=== PATIENT | female | born 1950 | race Caucasian/White ===

== ENCOUNTER 2018-01-02 13:16 | Outpatient (CLI) | payer MEDICARE, OTHER | END 2018-01-02 13:17 | disposition home or self-care (01) | LOC: BICMAMMO 13:16 | PROVIDERS: ATTEND Nurse Practitioner Family | DX: Z12.31 Encounter for screening mammogram for malignant neoplasm of breast (principal) | CPT/HCPCS: 77063; 77067 ==

== ENCOUNTER 2018-01-14 19:30 | Outpatient (CLI) | payer MEDICARE | END 2018-01-14 19:31 | disposition home or self-care (01) | LOC: SLEEPLAB 19:30 | PROVIDERS: ATTEND Nurse Practitioner Family | DX: G47.33 Obstructive sleep apnea (adult) (pediatric) (principal); E66.9 Obesity, unspecified; K21.9 Gastro-esophageal reflux disease without esophagitis; F32.9 Major depressive disorder, single episode, unspecified; I10 Essential (primary) hypertension; R53.83 Other fatigue; R06.83 Snoring | CPT/HCPCS: 95810 ==

== ENCOUNTER 2018-01-19 20:30 | Outpatient (CLI) | payer MEDICARE | END 2018-01-19 20:31 | disposition home or self-care (01) | LOC: SLEEPLAB 20:30 | PROVIDERS: ATTEND Nurse Practitioner Family | DX: G47.33 Obstructive sleep apnea (adult) (pediatric) (principal); G47.61 Periodic limb movement disorder; F32.9 Major depressive disorder, single episode, unspecified; I10 Essential (primary) hypertension; E66.9 Obesity, unspecified; K21.9 Gastro-esophageal reflux disease without esophagitis; R06.83 Snoring | CPT/HCPCS: 95811 ==

== ENCOUNTER 2018-01-22 10:03 | Outpatient (CLI) | payer MEDICARE | END 2018-01-22 10:04 | disposition home or self-care (01) | LOC: BICMAMMO 10:03 | PROVIDERS: ATTEND Nurse Practitioner Family | DX: Z13.820 Encounter for screening for osteoporosis (principal) | CPT/HCPCS: 77080 ==

== ENCOUNTER 2019-03-04 13:04 | Outpatient (CLI) | payer MEDICARE, OTHER ==
--- NOTE | 2019-03-04 13:50 | MMO ---
Bilateral MAMMO Bilat Screen [facility]. CLINICAL HISTORY: Patient is 69 years old and is seen for screening. The patient has no family history of breast cancer. The patient has no personal history of cancer. VIEWS: The views performed were: bilateral craniocaudal with tomosynthesis and bilateral mediolateral oblique with tomosynthesis. FILMS COMPARED: The present examination has been compared to prior imaging studies performed at [facility] on 06/03/2014 and 01/02/2018. MAMMOGRAM FINDINGS: The breasts are almost entirely fat. There are stable benign appearing calcifications seen in both breasts. There are no suspicious masses, suspicious calcifications, or new areas of architectural distortion. IMPRESSION: THERE IS NO MAMMOGRAPHIC EVIDENCE OF MALIGNANCY. A ROUTINE FOLLOW-UP MAMMOGRAM IN 1 YEAR IS RECOMMENDED. THE RESULTS OF THIS EXAM WERE SENT TO THE PATIENT. ACR BI-RADS Category 2 - Benign finding MAMMOGRAPHY NOTE: 1. A negative mammogram report should not delay a biopsy if a dominant of clinically suspicious mass is present. 2. Approximately 10% to 15% of breast cancers are not detected by mammography. 3. Adenosis and dense breasts may obscure an underlying neoplasm. Reported by: NEERU LOWERY MD Electonically Signed: [id number]
== END 2019-03-04 13:05 | disposition home or self-care (01) ==
LOC: BICMAMMO 13:04
PROVIDERS: ATTEND Nurse Practitioner Family
DX: Z12.31 Encounter for screening mammogram for malignant neoplasm of breast (principal)
CPT/HCPCS: 77063; 77067

== ENCOUNTER 2019-08-02 13:52 | Outpatient (CLI) | payer MEDICARE, OTHER ==
--- NOTE | 2019-08-02 14:06 | RAD ---
XR Hip Lt 2-3 View INDICATION: Left hip hematoma COMPARISON: None FINDINGS: Bones: No acute osseous abnormality. Bone mineralization appears within normal limits. Hip joint: Radiographically normal. SI joints and symphysis pubis: Radiographically normal. Intrapelvic contents: Visualized bowel gas pattern is within normal limits. Surrounding soft tissues: Radiographically normal. IMPRESSION: 1. No acute osseous abnormality.
--- NOTE | 2019-08-02 14:07 | RAD ---
XR Femur Lt 2 View STANDARD INDICATION: Hematoma COMPARISON: Left hip radiograph dated August 02, 2019. FINDINGS: Bones: No acute fracture or subluxation is demonstrated. Soft tissues: Within normal limits. Joints: There is mild osteoarthrosis of the left knee. IMPRESSION: No acute osseous abnormality.
== END 2019-08-02 13:53 | disposition home or self-care (01) ==
LOC: RAD-FRANK 13:52
PROVIDERS: ATTEND Nurse Practitioner Family
DX: S80.12XA Contusion of left lower leg, initial encounter (principal)

== ENCOUNTER 2020-03-09 08:36 | Outpatient (CLI) | payer MEDICARE, OTHER ==
--- NOTE | 2020-03-09 09:33 | BD ---
EXAM: Bone densitometry using DEXA HISTORY: 70 yo female. Screening for postmenopausal osteoporosis FINDINGS: L1--bone mineral density 1.587 g/sq cm; T score 5.4 ; Z score 7.2 L2--bone mineral density 1.492 g/sq cm; T score 4.2 ; Z score 6.2 L3--bone mineral density 1.371 g/sq cm; T score 2.6 ; Z score 4.7 L4--bone mineral density 1.360 g/sq cm; T score 2.7 ; Z score 4.8 Total L1-L4--bone mineral density 1.445 g/sq cm; T score 3.6 ; Z score 5.6 Left femoral neck--bone mineral density0.829; T score -0.2 ; Z score 1.5 Total proximal left femur--bone mineral density 1.045; T score 0.8 ; Z score 2.2 IMPRESSION: Normal BMD
--- NOTE | 2020-03-09 11:32 | MMO ---
Bilateral MAMMO Bilat Screen [facility]. CLINICAL HISTORY: Patient is 70 years old and is seen for screening. The patient has no family history of breast cancer. The patient has no personal history of cancer. VIEWS: The views performed were: bilateral craniocaudal with tomosynthesis and bilateral mediolateral oblique with tomosynthesis. FILMS COMPARED: The present examination has been compared to prior imaging studies performed at [facility] on 06/03/2014, 01/02/2018 and 03/04/2019. This study has been interpreted with the assistance of computer-aided detection. MAMMOGRAM FINDINGS: The breasts are almost entirely fat. Benign calcifications are noted bilaterally. There are no suspicious masses, suspicious calcifications, or new areas of architectural distortion. IMPRESSION: THERE IS NO MAMMOGRAPHIC EVIDENCE OF MALIGNANCY. A ROUTINE FOLLOW-UP MAMMOGRAM IN 1 YEAR IS RECOMMENDED. THE RESULTS OF THIS EXAM WERE SENT TO THE PATIENT. ACR BI-RADS Category 2 - Benign finding MAMMOGRAPHY NOTE: 1. A negative mammogram report should not delay a biopsy if a dominant of clinically suspicious mass is present. 2. Approximately 10% to 15% of breast cancers are not detected by mammography. 3. Adenosis and dense breasts may obscure an underlying neoplasm. Reported by: AISSATOU ARNOLD MD Electonically Signed: [id number]
== END 2020-03-09 08:37 | disposition home or self-care (01) ==
LOC: BICMAMMO 08:36
PROVIDERS: ATTEND Nurse Practitioner Family
DX: Z12.31 Encounter for screening mammogram for malignant neoplasm of breast (principal); Z13.820 Encounter for screening for osteoporosis
CPT/HCPCS: 77063; 77067; 77080

== ENCOUNTER 2020-10-24 14:39 | Outpatient (CLI) | payer MEDICARE, OTHER | END 2020-10-24 14:40 | disposition home or self-care (01) | LOC: BICMRI 14:39 | PROVIDERS: ATTEND Orthopaedic Surgery | DX: M75.101 Unspecified rotator cuff tear or rupture of right shoulder, not specified as traumatic (principal); M25.411 Effusion, right shoulder; M19.011 Primary osteoarthritis, right shoulder; M25.811 Other specified joint disorders, right shoulder ==

== ENCOUNTER 2020-11-30 10:55 | Outpatient (CLI) | payer MEDICARE, OTHER ==
[2020-11-30 12:31] LABS: #Eosinphils 0.2 10x3/uL (0.0-0.5); #Monocytes 0.8 10x3/uL (0.0-1.1); #Neutrophils 3.5 10x3/uL (1.5-8.4); %Basophils 0.6 % (0.0-2.0); %Eosinophils 3.4 % (0.0-6.0); %Lymphocytes 26.1 % (18.0-47.0); %Neutrophils 56.6 % (40.0-75.0); Hemoglobin 12.7 g/dL (12.0-15.5); Mean Corpuscular HGB CONC 32.1 g/dL (32.0-36.0); Mean Corpuscular Hemoglobin 30.5 pg (27.0-33.0); Mean Corpuscular Volume 95.2 fl (81.6-98.3); Mean Platelet Volume 8.6 fl (7.4-10.4); Platelet Count 345 10x3/uL (150-450); RBC Distribution Width 14.3 % (11.5-14.5); Red Blood Cell (RBC) Count 4.16 10x6/uL (3.90-5.03); White Blood Cell (WBC) Count 6.2 10x3/uL (3.5-10.5)
[2020-11-30 12:52] LABS: Anion Gap 17 mmol/L (10-20); BUN (Urea Nitrogen) 11 mg/dL (9.8-20.1); Calc. Creatinine Clearance 0 mL/min (70-130); Calcium 9.3 mg/dL (7.8-10.44); Carbon Dioxide 26 mmol/L (23-31); Chloride 94 mmol/L (98-107); Glucose 105 mg/dL (80-115); Potassium 3.8 mmol/L (3.5-5.1); Sodium 133 mmol/L (136-145)
[2020-11-30 17:53] LABS: SARS-CoV-2 PCR by NAA Not Detected (NotDetected)
== END 2020-11-30 10:56 | disposition home or self-care (01) ==
LOC: LABBT 10:55
PROVIDERS: ATTEND Orthopaedic Surgery
DX: Z01.818 Encounter for other preprocedural examination (principal); Z20.822 Contact with and (suspected) exposure to COVID-19; M75.101 Unspecified rotator cuff tear or rupture of right shoulder, not specified as traumatic; M75.21 Bicipital tendinitis, right shoulder
CPT/HCPCS: 80048; 85025; 87081; 93005; U0003; U0005; 87635; 93010

== ENCOUNTER 2020-11-30 11:00 | Inpatient (IN) | payer MEDICARE, OTHER ==
[2020-12-01 15:47] VITALS: BMI 33.8
[2020-12-05] MEDS ORDERED: Sodium Chloride 0.9% 100 ML ONE (06:34)
[2020-12-05] MEDS ORDERED: Tranexamic Acid 1,000 MG/10 ML VIAL ONE (06:34)
[2020-12-05] MEDS ORDERED: Midazolam HCl 2 mg/2 ml Vial ONE (06:35)
[2020-12-05] MEDS ORDERED: Fentanyl 100 MCG/2 ML VIAL ONE ×2 (06:35→07:13)
[2020-12-05] MEDS ORDERED: Lidocaine 1% (PF) 30 ML VIAL ONE (06:35)
[2020-12-05] MEDS ORDERED: Vancomycin 1.5 GRAM/300 ML BAG 1.5 GM in Premix Bag 1 BAG IVPB SCH (06:45)
[2020-12-05] MEDS ORDERED: HYDROcodone/Acetaminophen 7.5/325 mg Tablet PO PRN ×2 (07:07)
[2020-12-05] MEDS ORDERED: traMADol HCl 50 MG TAB PO PRN ×5 (07:07→07:45)
[2020-12-05] MEDS ORDERED: Non-Formulary Item 1 EACH (Loratadine [Claritin] 10 MG Capsule) PO PRN (07:10)
[2020-12-05] MEDS ORDERED: Rocuronium Bromide 10 MG/ML (10ML VIAL) ONE (07:23)
[2020-12-05] MEDS ORDERED: ePHEDrine Sulfate 50 MG/10 ML VIAL ONE (07:23)
[2020-12-05] MEDS ORDERED: Ketorolac Tromethamine 30 MG/ML VIAL ONE (07:23)
[2020-12-05] MEDS ORDERED: PROPOFOL 200 MG/20 ML VIAL ONE (07:23)
[2020-12-05] MEDS ORDERED: Dexamethasone 20 MG/5 ML VIAL ONE (07:23)
[2020-12-05] MEDS ORDERED: Ropivacaine 0.5% HCl/PF (150 MG/30 ML VIAL) ONE (07:23)
[2020-12-05] MEDS ORDERED: Ondansetron PF 4 MG/2 ML Vial ONE (07:23)
[2020-12-05] MEDS ORDERED: Glycopyrrolate 0.2 MG/ML 5 ML SYRINGE ONE (07:23)
[2020-12-05] MEDS ORDERED: PHENYLEPHRINE-NS 100 MCG/ML 10 ML SYRINGE ONE (07:23)
[2020-12-05] MEDS ORDERED: Ropivacaine 2% HCl/PF (20 MG/10 ML VIAL) ONE (07:23)
[2020-12-05] MEDS ORDERED: Lidocaine 1% PF 5 ML VIAL ONE (07:23)
[2020-12-05] MEDS ORDERED: Loratadine 10 MG TAB PO PRN (07:32)
[2020-12-05] MEDS ORDERED: Fentanyl 100 MCG/2 ML VIAL IV PRN (07:43)
[2020-12-05] MEDS ORDERED: Ropivacaine 0.2% 550 ML 550 ML NERVE BLCK SCH (07:45)
[2020-12-05] MEDS ORDERED: Ketorolac Tromethamine 30 MG/ML VIAL IVP PRN (07:45)
[2020-12-05] MEDS ORDERED: Ondansetron PF 4 MG/2 ML Vial IVP PRN (07:45)
[2020-12-05] MEDS ORDERED: Promethazine HCl 25 MG/ML VIAL IM PRN ×2 (07:45→08:17)
[2020-12-05] MEDS ORDERED: HYDROcodone/Acetaminophen 10/325 mg Tablet PO PRN (07:45)
[2020-12-05] MEDS ORDERED: Meperidine HCl/PF 25 MG/ML VIAL SLOW IVP PRN (08:17)
[2020-12-05] MEDS ORDERED: PACU-Morphine 4MG/ML VIAL SLOW IVP PRN (08:17)
[2020-12-05] MEDS ORDERED: Promethazine HCl 25 MG/ML VIAL SLOW IVP PRN (08:17)
[2020-12-05] MEDS ORDERED: Non-Formulary Item 1 EACH (Magnesium Oxide [Magnesium] 400 MG Capsule) PO SCH (09:00)
[2020-12-05] MEDS ORDERED: Carvedilol 3.125 MG TAB PO SCH (09:00)
[2020-12-05] MEDS ORDERED: Non-Formulary Item 1 EACH (Omeprazole Magnesium [Omeprazole Magnesium] 20 MG Capsule.Dr) PO SCH (09:00)
[2020-12-05] MEDS ORDERED: Non-Formulary Item 1 EACH (Latanoprost/Pf [Latanoprost 0.005% Eye Drop] 7.5 ML Drops) EA EYE SCH (09:00)
[2020-12-05] MEDS ORDERED: Non-Formulary Item 1 EACH (Cholecalciferol (Vitamin D3) [Vitamin D3] 25 MCG Capsule) PO SCH (09:00)
[2020-12-05] MEDS ORDERED: [UNRECOGNIZED DRUG - OTHER] PO SCH (09:00)
[2020-12-05] MEDS ORDERED: CEFAZOLIN 2 GM in Premix Bag 1 BAG IVPB SCH (14:00)
[2020-12-05] MEDS: Calcium Carbonate 600 MG + Vit D TAB PO SCH (14:24)
[2020-12-05] MEDS: Carvedilol 3.125 MG TAB PO SCH ×2 (14:25→21:06)
[2020-12-05] MEDS: Gabapentin 300 MG CAP PO SCH ×2 (14:25→21:07)
[2020-12-05] MEDS: Latanoprost 0.005% Ophth Soln 2.5 ml Bottle EA EYE SCH (14:25)
[2020-12-05] MEDS: Fish Oil 1,000 MG CAP PO SCH (14:25)
[2020-12-05] MEDS: Cholecalciferol 1,000 UNITS (25 MCG) TAB PO SCH (14:25)
[2020-12-05] MEDS: Lactinex Tablet PO SCH (14:25)
[2020-12-05] MEDS: Lisinopril/Hydrochlorothiazide 20/25 mg Tablet PO SCH ×2 (14:25→21:06)
[2020-12-05] MEDS: sulfaSALAzine 500 MG TAB PO SCH ×2 (14:26→21:05)
[2020-12-05] MEDS: Magnesium Oxide 400 MG TAB PO SCH (14:26)
[2020-12-05] MEDS: CEFAZOLIN 2 GM in Premix Bag 1 BAG IVPB SCH ×2 (15:33→23:06)
[2020-12-05] MEDS: Sodium Chloride 0.9% 1,000 ML IV SCH ×2 (15:54→23:06)
[2020-12-05] MEDS: HYDROcodone/Acetaminophen 10/325 mg Tablet PO PRN ×2 (19:13→23:05)
[2020-12-05] MEDS ORDERED: Pravastatin Sodium 20 MG TAB PO SCH (21:00)
[2020-12-05] MEDS: DULoxetine 60 MG CAP PO SCH (21:06)
[2020-12-05] MEDS: Simvastatin 10 MG TAB PO SCH (21:06)
[2020-12-05] MEDS: Zolpidem Tartrate 5 MG TAB PO PRN (21:07)
[2020-12-06] MEDS: Sodium Chloride 0.9% 1,000 ML IV SCH ×2 (04:29→13:05)
[2020-12-06] MEDS: HYDROcodone/Acetaminophen 10/325 mg Tablet PO PRN ×2 (05:20→17:14)
[2020-12-06] MEDS: Magnesium Oxide 400 MG TAB PO SCH (09:33)
[2020-12-06] MEDS: Lactinex Tablet PO SCH (09:34)
[2020-12-06] MEDS: Calcium Carbonate 600 MG + Vit D TAB PO SCH (09:34)
[2020-12-06] MEDS: Fish Oil 1,000 MG CAP PO SCH (09:34)
[2020-12-06] MEDS: Gabapentin 300 MG CAP PO SCH ×2 (09:35→20:15)
[2020-12-06] MEDS: Cholecalciferol 1,000 UNITS (25 MCG) TAB PO SCH (09:36)
[2020-12-06] MEDS: Carvedilol 3.125 MG TAB PO SCH ×2 (09:36→20:15)
[2020-12-06] MEDS: Lisinopril/Hydrochlorothiazide 20/25 mg Tablet PO SCH ×2 (09:36→20:17)
[2020-12-06] MEDS: sulfaSALAzine 500 MG TAB PO SCH ×2 (09:41→20:18)
[2020-12-06] MEDS: Latanoprost 0.005% Ophth Soln 2.5 ml Bottle EA EYE SCH (09:44)
[2020-12-06] MEDS ORDERED: Ropivacaine 0.5% HCl/PF (150 MG/30 ML VIAL) ONE (12:50)
[2020-12-06] MEDS: DULoxetine 60 MG CAP PO SCH (20:17)
[2020-12-06] MEDS: Simvastatin 10 MG TAB PO SCH (20:18)
[2020-12-06] MEDS: Zolpidem Tartrate 5 MG TAB PO PRN (21:34)
[2020-12-07] MEDS: HYDROcodone/Acetaminophen 10/325 mg Tablet PO PRN ×3 (05:52→21:15)
[2020-12-07] MEDS: Sodium Chloride 0.9% 1,000 ML IV SCH (07:17)
[2020-12-07] MEDS: Latanoprost 0.005% Ophth Soln 2.5 ml Bottle EA EYE SCH (08:57)
[2020-12-07] MEDS: Lactinex Tablet PO SCH (08:58)
[2020-12-07] MEDS: Calcium Carbonate 600 MG + Vit D TAB PO SCH (08:58)
[2020-12-07] MEDS: Lisinopril/Hydrochlorothiazide 20/25 mg Tablet PO SCH ×2 (08:58→21:10)
[2020-12-07] MEDS: sulfaSALAzine 500 MG TAB PO SCH ×2 (08:58→21:10)
[2020-12-07] MEDS: Magnesium Oxide 400 MG TAB PO SCH (08:58)
[2020-12-07] MEDS: Fish Oil 1,000 MG CAP PO SCH (08:58)
[2020-12-07] MEDS: Gabapentin 300 MG CAP PO SCH ×2 (08:58→21:10)
[2020-12-07] MEDS: Carvedilol 3.125 MG TAB PO SCH ×2 (08:59→21:10)
[2020-12-07] MEDS: Cholecalciferol 1,000 UNITS (25 MCG) TAB PO SCH (08:59)
[2020-12-07 14:28] LABS: Hemoglobin 11.1 g/dL (12.0-16.0); Mean Corpuscular HGB CONC 32.2 g/dL (32.0-36.0); Mean Corpuscular Hemoglobin 30.8 pg (27.0-31.0); Mean Corpuscular Volume 95.8 fL (78.0-98.0); Mean Platelet Volume 6.2 fL (7.4-10.4); Platelet Count 332 thou/uL (130-400); RBC Distribution Width 13.3 % (11.5-14.5); Red Blood Cell (RBC) Count 3.61 mill/uL (4.20-5.40); White Blood Cell (WBC) Count 8.6 thou/uL (4.8-10.8)
[2020-12-07 14:44] LABS: Lactic Acid 1.1 mmol/L (0.5-2.2)
[2020-12-07 14:46] LABS: Anion Gap 13 mmol/L (10-20); BUN (Urea Nitrogen) 9 mg/dL (9.8-20.1); Calc. Creatinine Clearance 121 mL/min (70-130); Calcium 9.8 mg/dL (7.8-10.44); Carbon Dioxide 34 mmol/L (23-31); Chloride 86 mmol/L (98-107); Glucose 104 mg/dL (80-115); Sodium 130 mmol/L (136-145)
[2020-12-07 14:53] LABS: Band 24 % (5-11); Eosinophils 1 % (0-10); Lymphocytes 10 % (21-51); MDiff Complete? YES; Monocytes 12 % (0-10); Neutrophil 49 % (42-75); Platelet Morphology Comment Appears Adequate; Polychromasia SLIGHT = 2-3 cells (100X) (0-2/hpf); Reactive Lymphocytes 3 % (0-10)
[2020-12-07 14:57] LABS: Potassium 2.9 mmol/L (3.5-5.1)
[2020-12-07] MEDS ORDERED: Potassium Chloride 20 MEQ TAB PO SCH ×2 (15:00→18:00)
[2020-12-07] MEDS: DULoxetine 60 MG CAP PO SCH (21:09)
[2020-12-07] MEDS: Simvastatin 10 MG TAB PO SCH (21:10)
[2020-12-07] MEDS: Zolpidem Tartrate 5 MG TAB PO PRN (21:16)
[2020-12-08 08:16] LABS: #Eosinphils 0.2 thou/uL (0.0-0.7); #Lymphocytes 1.3 thou/uL (1.20-3.40); #Monocytes 1.1 thou/uL (0.11-0.59); #Neutrophils 5.7 thou/uL (1.40-6.50); %Basophils 0.2 % (0.0-1.0); %Eosinophils 2.3 % (0.0-10.0); %Lymphocytes 15.2 % (21.0-51.0); %Monocytes 13.7 % (0.0-10.0); %Neutrophils 68.6 % (42.0-75.0); Hemoglobin 10.7 g/dL (12.0-16.0); Mean Corpuscular HGB CONC 31.6 g/dL (32.0-36.0); Mean Corpuscular Hemoglobin 30.3 pg (27.0-31.0); Mean Corpuscular Volume 95.8 fL (78.0-98.0); Mean Platelet Volume 6.1 fL (7.4-10.4); Platelet Count 313 thou/uL (130-400); RBC Distribution Width 13.4 % (11.5-14.5); Red Blood Cell (RBC) Count 3.53 mill/uL (4.20-5.40); White Blood Cell (WBC) Count 8.3 thou/uL (4.8-10.8)
[2020-12-08 08:32] LABS: Anion Gap 13 mmol/L (10-20); BUN (Urea Nitrogen) 10 mg/dL (9.8-20.1); Calc. Creatinine Clearance 127 mL/min (70-130); Calcium 9.1 mg/dL (7.8-10.44); Carbon Dioxide 33 mmol/L (23-31); Chloride 92 mmol/L (98-107); Glucose 97 mg/dL (80-115); Potassium 3.6 mmol/L (3.5-5.1); Sodium 134 mmol/L (136-145)
[2020-12-08] MEDS: Lisinopril/Hydrochlorothiazide 20/25 mg Tablet PO SCH ×2 (08:45→21:31)
[2020-12-08] MEDS: Gabapentin 300 MG CAP PO SCH ×2 (08:45→21:31)
[2020-12-08] MEDS: Lactinex Tablet PO SCH (08:45)
[2020-12-08] MEDS: Carvedilol 3.125 MG TAB PO SCH ×2 (08:45→21:31)
[2020-12-08] MEDS: Cholecalciferol 1,000 UNITS (25 MCG) TAB PO SCH (08:45)
[2020-12-08] MEDS: Fish Oil 1,000 MG CAP PO SCH (08:45)
[2020-12-08] MEDS: Calcium Carbonate 600 MG + Vit D TAB PO SCH (08:45)
[2020-12-08] MEDS: Magnesium Oxide 400 MG TAB PO SCH (08:45)
[2020-12-08] MEDS: sulfaSALAzine 500 MG TAB PO SCH ×2 (08:46→21:30)
[2020-12-08] MEDS: HYDROcodone/Acetaminophen 10/325 mg Tablet PO PRN ×4 (08:46→21:29)
[2020-12-08] MEDS: Latanoprost 0.005% Ophth Soln 2.5 ml Bottle EA EYE SCH (08:51)
[2020-12-08] MEDS: Simvastatin 10 MG TAB PO SCH (21:31)
[2020-12-08] MEDS: DULoxetine 60 MG CAP PO SCH (21:31)
[2020-12-09] MEDS: HYDROcodone/Acetaminophen 10/325 mg Tablet PO PRN ×2 (02:12→08:58)
[2020-12-09] MEDS: sulfaSALAzine 500 MG TAB PO SCH (08:59)
[2020-12-09] MEDS: Cholecalciferol 1,000 UNITS (25 MCG) TAB PO SCH (08:59)
[2020-12-09] MEDS: Magnesium Oxide 400 MG TAB PO SCH (08:59)
[2020-12-09] MEDS: Fish Oil 1,000 MG CAP PO SCH (08:59)
[2020-12-09] MEDS: Latanoprost 0.005% Ophth Soln 2.5 ml Bottle EA EYE SCH (08:59)
[2020-12-09] MEDS: Gabapentin 300 MG CAP PO SCH (08:59)
[2020-12-09] MEDS: Lactinex Tablet PO SCH (08:59)
[2020-12-09] MEDS: Calcium Carbonate 600 MG + Vit D TAB PO SCH (08:59)
[2020-12-09] MEDS: Carvedilol 3.125 MG TAB PO SCH (09:44)
[2020-12-09] MEDS: Lisinopril/Hydrochlorothiazide 20/25 mg Tablet PO SCH (09:44)
[2020-12-09 12:26] VITALS: BP 107/68; TEMP 98.2
== END 2020-12-09 13:31 | disposition home or self-care (01) | DRG 483 ==
LOC: SURG A 12-05 05:27 → EDSTATUS 12-05 11:00 → SURG B 12-05 14:32
PROVIDERS: ADMIT Orthopaedic Surgery; ATTEND Internal Medicine
PROC: 0RRJ00Z Replacement of Right Shoulder Joint with Reverse Ball and Socket Synthetic Substitute, Open Approach (ICD-10-PCS; principal; 2020-12-05)
PROC: 0LS30ZZ Reposition Right Upper Arm Tendon, Open Approach (ICD-10-PCS; 2020-12-05)
DX: M06.9 Rheumatoid arthritis, unspecified (principal); J96.01 Acute respiratory failure with hypoxia; E87.1 Hypo-osmolality and hyponatremia; M75.21 Bicipital tendinitis, right shoulder; M75.101 Unspecified rotator cuff tear or rupture of right shoulder, not specified as traumatic; I10 Essential (primary) hypertension; E78.5 Hyperlipidemia, unspecified; K21.9 Gastro-esophageal reflux disease without esophagitis; G47.33 Obstructive sleep apnea (adult) (pediatric); G43.909 Migraine, unspecified, not intractable, without status migrainosus; E87.6 Hypokalemia; Z90.49 Acquired absence of other specified parts of digestive tract; Z90.89 Acquired absence of other organs; Z87.891 Personal history of nicotine dependence; Z79.899 Other long term (current) drug therapy
CPT/HCPCS: 36415; 71045; 80048; 83605; 83880; 84484; 85025; 93005; 93010; A4306; C1713; J0690; J1100; J1885; J2001; J2250; J2405; J2704; J2795; J3010; J3490

== ENCOUNTER 2021-07-10 11:14 | Outpatient (CLI) | payer MEDICARE | END 2021-07-10 11:15 | disposition home or self-care (01) | LOC: BICRAD 11:14 | PROVIDERS: ATTEND Nurse Practitioner Family | DX: M25.511 Pain in right shoulder (principal) ==

== ENCOUNTER 2021-10-04 09:10 | Outpatient (CLI) | payer MEDICARE | END 2021-10-04 09:11 | disposition home or self-care (01) | LOC: MRI 09:10 | PROVIDERS: ATTEND Nurse Practitioner Family | DX: M47.26 Other spondylosis with radiculopathy, lumbar region (principal) | CPT/HCPCS: 72148 ==

== ENCOUNTER 2021-12-27 09:06 | Outpatient (CLI) | payer MEDICARE | END 2021-12-27 09:07 | disposition home or self-care (01) | LOC: BICMAMMO 09:06 | PROVIDERS: ATTEND Nurse Practitioner Family | DX: Z12.31 Encounter for screening mammogram for malignant neoplasm of breast (principal); Z13.820 Encounter for screening for osteoporosis; M05.79 Rheumatoid arthritis with rheumatoid factor of multiple sites without organ or systems involvement; E55.9 Vitamin D deficiency, unspecified | CPT/HCPCS: 77063; 77067; 77080 ==

== ENCOUNTER 2022-08-08 07:24 | Emergency (ER) | payer MEDICARE, OTHER | END 2022-08-08 08:56 | disposition home or self-care (01) | LOC: ERS 07:24 | DX: S93.402A Sprain of unspecified ligament of left ankle, initial encounter (principal); E78.5 Hyperlipidemia, unspecified; I10 Essential (primary) hypertension; G43.909 Migraine, unspecified, not intractable, without status migrainosus; X50.1XXA Overexertion from prolonged static or awkward postures, initial encounter ==

== ENCOUNTER 2023-08-20 14:09 | Outpatient (CLI) | payer MEDICARE | END 2023-08-20 14:10 | disposition home or self-care (01) | LOC: BICMAMMO 14:09 | PROVIDERS: ATTEND Nurse Practitioner Family | DX: Z12.31 Encounter for screening mammogram for malignant neoplasm of breast (principal); N63.20 Unspecified lump in the left breast, unspecified quadrant | CPT/HCPCS: 77063; 77067 ==

== ENCOUNTER 2023-08-29 14:46 | Outpatient (CLI) | payer MEDICARE | END 2023-08-29 14:47 | disposition home or self-care (01) | LOC: BICMAMMO 14:46 | PROVIDERS: ATTEND Nurse Practitioner Family | DX: N63.42 Unspecified lump in left breast, subareolar (principal) | CPT/HCPCS: 76642; 77065; G0279 ==

== ENCOUNTER 2023-11-07 08:27 | Outpatient (CLI) | payer MEDICARE | END 2023-11-07 08:28 | disposition home or self-care (01) | LOC: DTY/OP 08:27 | PROVIDERS: ATTEND Surgery | DX: G47.33 Obstructive sleep apnea (adult) (pediatric) (principal); E78.5 Hyperlipidemia, unspecified | CPT/HCPCS: 97802 ==

== ENCOUNTER 2024-02-27 13:49 | Outpatient (CLI) | payer OTHER | END 2024-02-27 13:50 | disposition home or self-care (01) | LOC: BICMAMMO 13:49 | PROVIDERS: ATTEND Nurse Practitioner Family | DX: R92.8 Other abnormal and inconclusive findings on diagnostic imaging of breast (principal); N63.42 Unspecified lump in left breast, subareolar | CPT/HCPCS: 76642; 77065; G0279 ==